=== PATIENT | female | born 2000 | race Caucasian/White ===

== ENCOUNTER → 2024-07-24 06:40 | Day surgery (SDC) | payer OTHER, SELFPAY ==
[2024-07-24] VITALS (9 sets, daily range): BP systolic 113–131; BP diastolic 74–83; BMI 21.4
[2024-07-24] MEDS: NORMOSOL-R/PLASMALYTE-A 1000 IV (09:25)
[2024-07-24] MEDS: TRANSDERM-SCOP 1 PATCH TRANSDERM (10:05)
[2024-07-24] MEDS: DILAUDID 0.25 MG IV (11:50)
== END ==
LOC: SDS 06:40
PROVIDERS: ATTENDING PHYSICIAN Otolaryngology
DX: J35.01 Chronic tonsillitis (principal)
CPT/HCPCS: 42826; 88304

== ENCOUNTER 2024-07-26 16:59 | Emergency (ER) | payer OTHER, SELFPAY ==
[2024-07-26 17:01] VITALS: BP 120/84
--- NOTE | 2024-07-26 18:33 | ED.GENMED ---
History of Present Illness
General
Chief Complaint: Post Operative Problem(s)
Source: patient
Time Seen by Provider: 07/26/24 18:18
History of Present Illness
History of Present Illness:
23-year-old female presents to the emergency room complaining of nausea vomiting. Patient had her tonsils removed 2 days ago. She felt okay for the initial 24 hours or so but has begun having nausea and vomiting. She is unable to take any
medications. She is also not been able to drink much liquid. No fever. She is not vomited blood.
Phy Exam
Physical Exam
Physical Exam:
General: Awake, Alert, Oriented X3. No acute distress.
Vitals: unremarkable
Head: Atraumatic
Eyes: Pupils equal, EOMI
Throat: Airway intact, eschar noted on tonsillar bed without any bleeding
Neck: Trachea midline
Lungs: Clear and equal b/l
Heart: Regular rate, no murmurs
Abd: Soft, Nontender, No pulsatile mass
Neuro: Nonfocal
Skin: Warm, dry, no rash
Extremities: pulses equal b/l, no edema
Course
Orders/Labs/Results
Orders:
Orders
07/26/24 18:31
Ketorolac [Toradol] 15 mg IV NOW STA
Ondansetron Injectable [Zofran] 4 mg IV NOW STA
Test Result ONCE
07/26/24 18:32
Lactated Ringers [Lr] 1,000 ml IV BOLUS
07/26/24 18:40
Basic Metabolic Panel Urgent
HCG, Serum Qualitative Screen Urgent
07/26/24 19:44
Famotidine [Pepcid] 20 mg IV NOW STA
07/26/24 20:25
Lactated Ringers [Lr] 1,000 ml IV BOLUS
Ondansetron Injectable [Zofran] 4 mg IV NOW STA
07/26/24 21:57
Diphenhydramine [Benadryl] 25 mg IV NOW STA
Prochlorperazine [Compazine] 10 mg IV NOW STA
Abnormal Lab Results
07/26/24
18:40
Creatinine 0.5 L mg/dL
(0.6-1.0)
07/26/24 18:40
Vital Signs
Initial and Last Documented VS:
Initial Vital Signs
Temp Pulse Resp BP Pulse Ox
98.3 F 84 16 120/84 95
07/26/24 17:01 07/26/24 17:01 07/26/24 17:01 07/26/24 17:01 07/26/24 17:01
Last Documented Vital Signs
Temp Pulse Resp BP Pulse Ox
98.3 F 89 18 126/85 100
07/26/24 17:01 07/26/24 22:30 07/26/24 22:30 07/26/24 22:30 07/26/24 22:30
MDM/Problems Addressed
Differential Diagnosis Includes:
Postoperative nausea vomiting, nausea vomiting is an adverse reaction to opiates, dehydration, electrolyte abnormality
MDM/Problems Addressed:
Patient presents with inability to tolerate oral intake. She was treated with antiemetics and IV fluid which ultimately did improve her symptoms. She was able to tolerate some oral liquids and was stable for discharge home. Recommend she avoid
opiates as this may be a significant contributing factor to the way she feels. Take only Tylenol and ibuprofen for discomfort from the surgery. Return for any bleeding
*Pulse Oximetry
Patient hypoxic: no
*Critical Care Note
Total Time (30-74mins, 75-104mins- exclusive of procedures): Not Applicable
Data Reviewed
Review of Other/Old Records Reveals: Operative Reports (From recent tonsillectomy)
ED Attending Note
-
Portions of this chart may have been created with voice recognition software.� Occasional wrong word or��sound alike� substitutions may have occurred due to the inherent limitations of voice recognition software.
Discharge Plan
Departure
Patient Disposition: Home (Routine Discharge)
Date of Disposition: 07/26/24
Time of Disposition: 22:38
Patient with high blood pressure during this ER visit?: No
Condition: Good
Discharge Problem:
Nausea and vomiting, Dehydration
Prescriptions:
New
ondansetron 4 mg tablet,disintegrating
4 mg PO Q8H PRN (Reason: nausea and vomiting) Qty: 10 0RF
No Action
acetaminophen [Tylenol] 325 mg Tablet
650 mg PO Q4H PRN (Reason: pain)
ibuprofen 200 mg Capsule
400 mg PO Q6H PRN (Reason: pain)
Referrals:
Junito Bernstein MD [Family Provider] -
Activity Restrictions/Additional Instructions:
I believe your nausea and vomiting is at least partially related to the use of hydrocodone. Opiates can cause nausea and vomiting. I would stop this medication and use just acetaminophen and ibuprofen for pain. Opiates can also cause constipation
so this is another reason to avoid this medication. The scopolamine patch which were prescribed postoperatively was meant to counteract the nausea that is associate with anesthesia. This medication can also contribute to constipation. I do not
believe another prescription for this medication is in your best interest. However I did send a prescription for Zofran to help with your nausea and vomiting.
Interventions
Interventions:
*Risk Screen - Suicide Last Done: 07/26/24 17:01
*General Assessment Last Done: 07/26/24 17:01
*Neglect/Abuse Screening Last Done: 07/26/24 22:45
ED- Fall Risk Assessment Last Done: 07/26/24 22:45
*ED COVID-19 Vaccine History Last Done: 07/26/24 17:01
*Nursing Disposition Last Done: 07/26/24 22:45
ED-Skin Assessment Last Done: 07/26/24 18:48
Discharge Date and Time
Discharge Date/Time: 07/26/24 22:45
Print Language: ERITREAN
[2024-07-26] MEDS: ZOFRAN 4 MG IV ×2 (18:42→20:39)
[2024-07-26] MEDS: TORADOL 15 MG IV (18:42)
[2024-07-26] MEDS: LR 1000 IV ×2 (18:42→20:38)
[2024-07-26 19:12] LABS: HCG, Serum Qualitative Screen Negative
[2024-07-26 19:17] LABS: Blood Urea Nitrogen 13 mg/dl (7-17); Calcium 9.2 mg/dl (8.4-10.2); Carbon Dioxide 26 mmol/L (22-30); Chloride 101 mmol/L (98-107); Glucose 96 mg/dl (70-99); Potassium 3.8 mmol/L (3.5-5.1); Sodium 137 mmol/L (135-145); eGFR > 60.00
[2024-07-26] MEDS: PEPCID 20 MG IV (19:47)
[2024-07-26] MEDS: BENADRYL 25 MG IV (22:00)
[2024-07-26] MEDS: COMPAZINE 10 MG IV (22:00)
[2024-07-26 22:30] VITALS: BP 126/85
== END 2024-07-26 22:45 | disposition home or self-care (01) ==
LOC: EMR 16:59
PROVIDERS: EMERGENCY PHYSICIAN Emergency Medicine; FAMILY PHYSICIAN Pediatrics
DX: R11.2 Nausea with vomiting, unspecified (principal); E86.0 Dehydration; Z98.890 Other specified postprocedural states; Z91.018 Allergy to other foods
CPT/HCPCS: 99284; 96374; 96375 ×4; 96361 ×2; 96376; 80048; 84703